=== PATIENT | female | born 1945 | race Caucasian/White ===

== ENCOUNTER 2017-01-24 00:15 | Inpatient (IN) | payer MEDICARE, OTHER ==
[2017-01-24] MEDS ORDERED: Ondansetron INJ* 2 MG/ML VIAL IV ONE ×2 (00:56→03:37)
[2017-01-24] MEDS: NS 0.9% 1000 ML* 2,000 ML IV ONE ×2 (01:11→05:31)
[2017-01-24 01:23] LABS: Hematocrit 38 % (35-47); Hemoglobin 12.8 g/dl (12.0-16.0); Mean Corpuscular HGB Conc 34 g/dl (31-36); Mean Corpuscular Hemoglobin 30 pg (27-31); Mean Corpuscular Volume 90 fL (80-97); Mean Platelet Volume 9 um3 (7.4-10.4); Red Cell Distribution Width 14 % (10.5-15); White Blood Count 8.4 10^3/ul (3.5-10.8)
[2017-01-24 01:38] LABS: BUN/Creatinine Ratio 17.1 (8-20); C Reactive Protein 5.98 mg/L (< 5.00); Calcium 9.6 mg/dL (8.6-10.3); EGFR African American 87.9 (>60); EGFR Non-African American 68.3 (>60); Globulin 3.3 g/dL (2-4); Potassium 3.9 mmol/L (3.5-5.0); Total Bilirubin 0.7 mg/dL (0.2-1.0); Total Protein 7.3 g/dL (6.4-8.9)
[2017-01-24 01:58] LABS: Troponin I 0.01 ng/mL (<0.04)
[2017-01-24] MEDS ORDERED: Iohexol 300* (CONTRAST) 10 ML SDV IV ONE (06:15)
--- NOTE | 2017-01-24 07:10 | ED ---
Eros Read Adam, scribed for Mike Real MD on 01/24/17 at 0057 . GI/ HPI - HPI Summary HPI Summary: Pt is a 71 year old female presenting with nausea and vomiting since between 05: 00 and 06:00 this morning. She states that she felt ill as soon as she woke up. She can't count how many times she has vomited. She states that she can't even keep water down. She does not know if she has eaten any bad food and she states that she hasn't eaten anything out of the ordinary. Her abdomen is not distended and she has been passing gas. She denies diarrhea. She also reports a temporary episode of chest pain earlier today that felt like electrical shocks. PMHx of CHF, COPD, and [place] 1 year ago (no stent due to internal bleeding). She also had a valve replacement 1 year ago. She still has her gallbladder. She is a former smoker. She has approximately 1 drink daily. - History of Current Complaint Chief Complaint: EDNauseaVomitDiarrh Stated Complaint: N,V Hx Obtained From: Patient Onset/Duration: Started Hours Ago, Atraumatic, Still Present Timing: Constant Severity: Moderate Current Severity: Moderate Pain Characteristics: Other: - Electrical shocks in chest Associated Signs and Symptoms: Positive: Nausea, Vomiting, Chest Pain. Negative : Diarrhea Aggravating Factor(s): Nothing Alleviating Factor(s): Medication - Nausea medication in ED - Additional Pertinent History Primary Care Physician: NASIR - Allergy/Home Medications Allergies/Adverse Reactions: Allergies Allergy/AdvReac Type Severity Reaction Status Date / Time Sulfa Antibiotics Allergy Unknown Verified 12/25/15 04:47 Reaction Details PMH/Surg Hx/FS Hx/Imm Hx Endocrine/Hematology History: Reports: Hx Anemia, Hx Unexplained Bleeding Denies: Hx Anticoagulant Therapy, Hx Blood Disorders, Hx Blood Transfusions, Hx Bone Marrow Disease, Hx Diabetes, Hx Thyroid Disease Cardiovascular History: Reports: Hx Angina, Hx Congestive Heart Failure, Hx Coronary Artery Disease, Hx Hypertension, Hx Syncope, Hx Valvular Heart Disease Denies: Hx Aneurysm, Hx Angioplasty, Hx Auto Implanted Cardiovert Defib, Hx Cardiac Arrest, Hx Cardiomegaly, Hx Congenital Heart Disease, Hx Deep Vein Thrombosis, Hx Embolism, Hx Hypercholesterolemia, Hx Hypotension, Hx Pacemaker/ ICD, Hx Peripheral Vascular Disease, Hx Rheumatic Fever Respiratory History: Reports: Hx Chronic Obstructive Pulmonary Disease (COPD), Hx Pneumonia, Hx Pulmonary Edema Denies: Hx Asthma, Hx Chronic Bronchitis, Hx Cystic Fibrosis, Hx Lung Cancer , Hx Pleural Effusion, Hx Pulmonary Embolism, Hx Seasonal Allergies, Hx Sleep Apnea, Other Respiratory Problems/Disorders GI History: Reports: Hx Gastrointestinal Bleed, Other GI Disorders - colon ressection for a polop Denies: Hx Cirrhosis, Hx Crohn's Disease, Hx Diverticulosis, Hx Gall Bladder Disease, Hx Gastroesophageal Reflux Disease, Hx Hiatal Hernia, Hx Irritable Bowel, Hx Jaundice, Hx Obstructive Bowel, Hx Ileostomy, Hx Pyloric Stenosis, Hx Ulcer Musculoskeletal History: Denies: Hx Arthritis, Hx Osteoporosis Sensory History: Reports: Hx Contacts or Glasses Denies: Hx Cataracts, Hx Eye Injury Opthamlomology History: Reports: Hx Contacts or Glasses Denies: Hx Cataracts, Hx Eye Injury Neurological History: Denies: Hx Dementia, Hx Developmental Delay, Hx Headaches, Hx Migraine, Hx Nerve Disease, Hx Seizures, Hx Spinal Cord Injury, Hx Transient Ischemic Attacks (TIA), Other Neuro Impairments/Disorders Psychiatric History: Reports: Hx Anxiety, Hx Depression Denies: Hx Attention Deficit Hyperactivity Disorder, Hx Community Mental Health Tx, Hx Bipolar Disorder - Surgical History Surgery Procedure, Year, and Place: hysterectomy, gallbladder removal, colon resection Hx Anesthesia Reactions: No Infectious Disease History: No Infectious Disease History: Denies: Hx Hepatitis, Hx Tuberculosis, Traveled Outside the [place] in Last 30 Days - Family History Known Family History: Positive: Other - Social History Occupation: Retired Lives: With Family - Alcohol Use: Daily - 1 drink per day Hx Substance Use: No Substance Use Type: Reports: None Hx Tobacco Use: Yes Smoking Status (MU): Former Smoker Type: Cigarettes Amount Used/How Often: 1/2 ppd Have You Smoked in the Last Year: Yes Review of Systems Negative: Fever Positive: Chest Pain Positive: Vomiting, Nausea. Negative: Abdominal Pain, Diarrhea All Other Systems Reviewed And Are Negative: Yes Physical Exam - Summary Physical Exam Summary: The patient is well-nourished in no acute distress and in no acute pain. The skin is warm and dry and skin color reflects adequate perfusion. HEENT: The head is normocephalic and atraumatic. The pupils are equal and reactive. The conjunctivae are clear and without drainage. Nares are patent and without drainage. Mouth reveals dry mucous membranes and the throat is without erythema and exudate. The external ears are intact. The ear canals are patent and without drainage. The tympanic membranes are intact. Neck is supple with full range of motion and non-tender. There are no carotid bruits. There is some neck vein distension. Respiratory: Chest is non-tender. Diminished breath sounds throughout. No wheezes, rhonchi, or rales. Cardiovascular: Heart is regular rate and rhythm. There is no murmur or rub auscultated. There is no peripheral edema and pulses are symmetrical and equal. Abdomen: The abdomen is soft and non-tender. There are normal bowel sounds heard in all four quadrants and there is no organomegaly palpated. Musculoskeletal: There is no back pain noted. Extremities are non-tender with full range of motion. There is good capillary refill. There is pitting edema of the lower extremities. Neurological: Patient is alert and oriented to person, place and time. The patient has symmetrical motor strength in all four extremities. Cranial nerves are grossly intact. Deep tendon reflexes are symmetrical and equal in all four extremities. Psychiatric: The patient has an appropriate affect and does not exhibit any anxiety or depression. Triage Information Reviewed: Yes Vital Signs On Initial Exam: Initial Vitals Temp Pulse Resp BP Pulse Ox 99.2 F 88 18 147/69 98 01/24/17 00:18 01/24/17 00:18 01/24/17 00:18 01/24/17 00:18 01/24/17 00:18 Vital Signs Reviewed: Yes - Elicia Coma Scale Coma Scale Total: 15 Diagnostics - Vital Signs Vital Signs Temp Pulse Resp BP Pulse Ox 01/24/17 00:18 99.2 F 88 18 147/69 98 - Laboratory Lab Results: Lab Results 01/24/17 01/24/17 01/24/17 Range/Units 01:10 01:10 01:10 WBC 8.4 (3.5-10.8) 10^3/ul RBC 4.20 (4.0-5.4) 10^6/ul Hgb 12.8 (12.0-16.0) g/dl Hct 38 (35-47) % MCV 90 (80-97) fL MCH 30 (27-31) pg MCHC 34 (31-36) g/dl RDW 14 (10.5-15) % Plt Count 151 (150-450) 10^3/ul MPV 9 (7.4-10.4) um3 Neut % (Auto) 82.5 (38-83) % Lymph % (Auto) 9.0 L (25-47) % [place] % (Auto) 7.6 (1-9) % Eos % (Auto) 0.5 (0-6) % Baso % (Auto) 0.4 (0-2) % Absolute Neuts (auto) 7.0 (1.5-7.7) 10^3/ul Absolute Lymphs (auto) 0.8 L (1.0-4.8) 10^3/ul Absolute Monos (auto) 0.6 (0-0.8) 10^3/ul Absolute Eos (auto) 0 (0-0.6) 10^3/ul Absolute Basos (auto) 0 (0-0.2) 10^3/ul Absolute Nucleated RBC 0 10^3/ul Nucleated RBC % 0 Sodium 136 (133-145) mmol/L Potassium 3.9 (3.5-5.0) mmol/L Chloride 99 L (101-111) mmol/L Carbon Dioxide 32 (22-32) mmol/L Anion Gap 5 (2-11) mmol/L BUN 14 (6-24) mg/dL Creatinine 0.82 (0.51-0.95) mg/dL Est GFR ( Amer) 87.9 (>60) Est GFR (Non-Af Amer) 68.3 (>60) BUN/Creatinine Ratio 17.1 (8-20) Glucose 134 H (70-100) mg/dL Lactic Acid 1.2 (0.5-2.0) mmol/L Calcium 9.6 (8.6-10.3) mg/dL Total Bilirubin 0.70 (0.2-1.0) mg/dL AST 21 (13-39) U/L ALT 15 (7-52) U/L Alkaline Phosphatase 65 (34-104) U/L Troponin I 0.01 (<0.04) ng/mL C-Reactive Protein 5.98 H (< 5.00) mg/L Total Protein 7.3 (6.4-8.9) g/dL Albumin 4.0 (3.2-5.2) g/dL Globulin 3.3 (2-4) g/dL Albumin/Globulin Ratio 1.2 (1-3) Amylase 46 (29-103) U/L Lipase 17 (11.0-82.0) U/L 01/24/17 Range/Units 05:35 WBC (3.5-10.8) 10^3/ul RBC (4.0-5.4) 10^6/ul Hgb (12.0-16.0) g/dl Hct (35-47) % MCV (80-97) fL MCH (27-31) pg MCHC (31-36) g/dl RDW (10.5-15) % Plt Count (150-450) 10^3/ul MPV (7.4-10.4) um3 Neut % (Auto) (38-83) % Lymph % (Auto) (25-47) % [place] % (Auto) (1-9) % Eos % (Auto) (0-6) % Baso % (Auto) (0-2) % Absolute Neuts (auto) (1.5-7.7) 10^3/ul Absolute Lymphs (auto) (1.0-4.8) 10^3/ul Absolute Monos (auto) (0-0.8) 10^3/ul Absolute Eos (auto) (0-0.6) 10^3/ul Absolute Basos (auto) (0-0.2) 10^3/ul Absolute Nucleated RBC 10^3/ul Nucleated RBC % Sodium (133-145) mmol/L Potassium (3.5-5.0) mmol/L Chloride (101-111) mmol/L Carbon Dioxide (22-32) mmol/L Anion Gap (2-11) mmol/L BUN (6-24) mg/dL Creatinine (0.51-0.95) mg/dL Est GFR ( Amer) (>60) Est GFR (Non-Af Amer) (>60) BUN/Creatinine Ratio (8-20) Glucose (70-100) mg/dL Lactic Acid 0.7 (0.5-2.0) mmol/L Calcium (8.6-10.3) mg/dL Total Bilirubin (0.2-1.0) mg/dL AST (13-39) U/L ALT (7-52) U/L Alkaline Phosphatase (34-104) U/L Troponin I (<0.04) ng/mL C-Reactive Protein (< 5.00) mg/L Total Protein (6.4-8.9) g/dL Albumin (3.2-5.2) g/dL Globulin (2-4) g/dL Albumin/Globulin Ratio (1-3) Amylase (29-103) U/L Lipase (11.0-82.0) U/L Result Diagrams: 01/24/17 01:10 01/24/17 01:10 Lab Statement: Any lab studies that have been ordered have been reviewed, and results considered in the medical decision making process. - Radiology Abdomen X-Ray Radiology Interpretation Completed By: ED Physician - DILATED LARGE BOWEL. AIR FLUID LEVELS. CONCERN FOR SBO. WILL DO CT. - CT A/P CT Interpretation Completed By: Radiologist - MINIMALLY TO MODERATELY DILATED SMALL BOWEL LEFT UPPER AND BILATERAL LOWER QUADRANTS WITH RELATIVELY DECOMPRESSED DISTAL SMALL BOWEL BUT NO DISCRETE TRANSITION POINT. FINDINGS PROBABLY REPRESENT EARLY/PARTIAL SMALL BOWEL OBSTRUCTION. VERY SMALL ANTIMESENTERIC PORTION OF SMALL BOWEL PROJECTS INTO A SHALLOW 1.5 CM SUPRAUMBILICAL VENTRAL HERNIA. NO COLITIS, DIVERTICULITIS OR FREE AIR. NORMAL APPENDIX. UNREMARKABLE PANCREAS AND KIDNEYS. CHOLECYSTECTOMY. INDETERMINATE 2.2 CM RIGHT ADRENAL NODULE. SMALL ASCITES. HYSTERECTOMY. STENT ASCENDING AORTA, INCOMPLETELY SEEN. - EKG 01:17 Cardiac Rate: NL - 80 BPM EKG Interpretation: Old inferior wall [place], RBBB, prolonged QT - Additional Comments Diagnostic Additional Comments: Troponin I - 0.01 Re-Evaluation - Re-Evaluation First Eval Re-Evaluation Time: 03:35 - Patient is getting more nauseated. Concern about possible SBO. Will order CT. Change: Worse Second Eval Re-Evaluation Time: 06:49 - I informed the patient of the results and the plan. GIGU Course/Dx - Course Course Of Treatment: Patient has a SBO and will be admitted. We will contact surgery after 07:00. - Diagnoses Differential Diagnoses - Female: Appendicitis, Bowel Obstruction, Cholelithiasis , Peptic Ulcer Disease, Urinary Tract Infection Provider Diagnoses: Small bowel obstruction, COPD (chronic obstructive pulmonary disease) - Critical Care Time Critical Care Time: 30-74 min - 30 min. Discharge - Discharge Plan Condition: Stable Disposition: ADMITTED TO [facility] Referrals: Lázaro Rivas MD [Primary Care Provider] - The documentation as recorded by the Eros mcconnell Adam accurately reflects the service I personally performed and the decisions made by me, Mike Real MD.
[2017-01-24] MEDS ORDERED: Ondansetron INJ* 2 MG/ML VIAL IV PRN (07:52)
--- NOTE | 2017-01-24 07:53 | RAD ---
Indication: Vomiting, small bowel obstruction Flat and upright views of the abdomen demonstrates no free air. Dilated stomach with air-fluid levels as well as dilated loops of small bowel with air-fluid levels are noted. A paucity of gas is noted in the colon. Findings are suspicious for small bowel obstruction. IMPRESSION: Findings suspicious for small bowel obstruction.
--- NOTE | 2017-01-24 08:10 | RAD ---
CLINICAL HISTORY: Intractable vomiting COMPARISON: December 12, 2002 TECHNIQUE: Multiple contiguous axial CT scans were obtained of the abdomen and pelvis after the administration of intravenous contrast. Coronal and sagittal multiplanar reformations are submitted for review. Oral contrast was administered. Delayed images were obtained through the abdomen and pelvis. FINDINGS: LUNG BASES: A prosthetic heart valve versus aortic stent is noted. There are trace bilateral pleural effusions. LIVER: The liver is normal in shape, size, contour, and attenuation. There is trace amount of perihepatic ascites. BILE DUCTS: There is no intrahepatic or extrahepatic biliary dilatation. GALLBLADDER: The gallbladder is not visualized. Surgical clips are noted in the gallbladder fossa. PANCREAS: The pancreas is normal, without mass or ductal dilatation. SPLEEN: Normal in size and appearance. UPPER GI TRACT: Evaluation of the gastrointestinal tract is limited by incomplete gastric distention. The upper GI tract is unremarkable. SMALL BOWEL AND MESENTERY: There is diffuse distention with mild dilatation of the small bowel proximally. There is a transition to decompressed small bowel within the central lower abdomen. There is a small amount of fluid along the small bowel mesentery. COLON: The colon is decompressed. There is a tubular, vermiform, hollow viscus that is blind ending, and originates from the cecum, consistent with a normal appendix. There is no periappendiceal inflammatory change. ADRENALS: Again noted is right adrenal nodule, not significantly changed from December 12, 2002 KIDNEYS: The kidneys are normal in shape, size, contour, and axis. There is no hydronephrosis or nephrolithiasis. BLADDER: The bladder is smooth in contour. PELVIC ORGANS: The pelvic organs are not visualized. AORTA: There is extensive calcific atherosclerotic disease of the abdominal aorta and its branches, without aneurysmal dilatation IVC: Unremarkable LYMPH NODES: There is no lymphadenopathy by size criteria. ABDOMINAL WALL: There is a small ventral hernia containing sidewall of small bowel. This is not the point of obstruction. BONES AND SOFT TISSUES: There are mild diffuse degenerative changes. There is stable sclerosis along the left SI joint OTHER: None IMPRESSION: 1. MILDLY DILATED LOOPS OF SMALL BOWEL WITH A TRANSITION POINT TO DECOMPRESSED SMALL BOWEL, WITH PAUCITY OF LARGE BOWEL GAS CONSISTENT WITH EARLY OR PARTIAL SMALL BOWEL OBSTRUCTION. 2. SMALL VENTRAL HERNIA CONTAINING SIDEWALL OF SMALL BOWEL, NOT THE POINT OF OBSTRUCTION. 3. SMALL AMOUNT OF ASCITES..
[2017-01-24] MEDS ORDERED: PROCHLORPERAZINE INJ 5 MG/ML 2 ML VIAL IV PRN (08:47)
[2017-01-24] MEDS: NS 0.9% 1000 ML* 1,000 ML IV SCH ×2 (09:43→19:46)
[2017-01-24] MEDS: Morphine INJ* 2 MG/ML 1 ML SYRINGE IV PRN ×3 (11:39→19:46)
[2017-01-24 11:46] LABS: Urine Bilirubin Negative (Negative); Urine Glucose Negative (Negative); Urine Nitrite Negative (Negative)
--- NOTE | 2017-01-24 13:00 | HP ---
HISTORY AND PHYSICAL: DATE OF ADMISSION: 01/24/17 PRIMARY CARE PROVIDER: Dr. Rivas. CHIEF COMPLAINT: Nausea and vomiting. HISTORY OF PRESENT ILLNESS: Ms. Bearden is a 71-year-old female who has had numerous abdominal surgeries including cholecystectomy, hysterectomy, and a partial colon resection in the past, who presents to the emergency room with complaints of 24 hours of nausea and vomiting with mild abdominal discomfort. The patient does state, however, over the last 1 month that she has noticed increased distention of her upper abdomen. The patient does not recall anything out of the ordinary in the last several days; however, her nausea and vomiting persisted over the last 24 hours and therefore she presented to the emergency room. She does state that she has been having normal bowel movements , with her last bowel movement being the day prior to admission. The patient states that she did not eat anything over the last 24 hours due to the persistent nausea and vomiting. Her nausea worsens with any movement. PAST MEDICAL HISTORY: 1. COPD, on 3 L O2 chronically. 2. Diastolic CHF. 3. CAD. 4. Atrial fibrillation. 5. Hypertension. 6. Hyperlipidemia. 7. Anxiety. 8. History of recurrent GI bleed felt to be secondary to a large colonic polyp , status post polypectomy. PAST SURGICAL HISTORY: 1. TAVR. 2. Cholecystectomy. 3. Hysterectomy. 4. Partial colon resection. ALLERGIES: SULFA. FAMILY HISTORY: Mom of colon cancer, she also had a history of uterine cancer. Dad of CHF, he never saw a physician. SOCIAL HISTORY: The patient is a former smoker, she quit approximately 1 year ago at the time of her OR. She drinks 2 alcoholic beverages daily. 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 She is . She has 3 children. Her Floyd is her healthcare proxy. REVIEW OF SYSTEMS: The patient denies any fevers but does admit to feeling chilled and having alternating chills and being hot over the last 24 hours. She has had no appetite for the last 24 hours. She denies any chest. She has chronic lower extremity edema that she states is at her baseline. She denies any shortness of breath at this point. She does have a chronic cough and slight mucous production, though this is unchanged from her baseline. She admits to nausea, vomiting, and abdominal discomfort as above. No diarrhea. No hematuria, no dysuria. No focal weakness or sensory loss. No sudden changes in vision. No dysphagia. No joint pains or muscle pains out of the ordinary. No rashes. No active anxiety or depression. PHYSICAL EXAMINATION GENERAL: The patient is a well-developed elderly female sitting up in the stretcher in no acute distress. VITAL SIGNS: Blood pressure 138/60, pulse 79, respirations 22, temp 99.2, O2 sat 95% on 3 L. HEENT: Pupils are equal, they are round, they react to light. Extraocular muscles are intact. Oropharynx is clear. Oral mucosa is moist. There is no submandibular, cervical, or supraclavicular adenopathy. PULMONARY: Lungs are clear to auscultation bilaterally. The breath sounds are diminished in all lung monae. CARDIAC: Normal S1, S2. Regular rate and rhythm. There is a 3/6 systolic murmur heard best at the left upper sternal border. There is 1 to 2+ bilateral pitting edema of the lower extremities with erythematous changes of the lower legs bilaterally (the patient states this is baseline). ABDOMEN: Bowel sounds are present. Abdomen is moderately distended, slightly tender to palpation. MUSCULOSKELETAL: There is no cyanosis or clubbing of the digits. There is full active range of motion of all 4 extremities. SKIN: Warm and dry. There are no rashes but again there mild erythematous changes to the bilateral lower legs. NEURO: Cranial nerves II through XII are grossly intact. Sensation is intact to light touch throughout. Strength is 5/5 and symmetric in both upper and lower extremities bilaterally. PSYCH: The patient is alert. She is oriented x3. Affect appears appropriate. DIAGNOSTIC STUDIES/LAB DATA: WBC 8.4, hemoglobin 12.8, hematocrit 38, platelets 151. Sodium 136, potassium 3.9, chloride 99, CO2 32, BUN 14, creatinine 0.82, glucose 134, lactic acid 1.2, calcium 9.6, bilirubin 0.7, AST 21, ALT 15, alk phos 65. Troponin 0.01. CRP 5.98. Albumin 4.0, amylase 46, lipase 17. EKG reveals normal sinus rhythm with a prolonged CO interval and right bundle- branch block. Abdominal x-ray shows perhaps mildly distended small bowel loops though this not firmly red. Abdomen and pelvis CT reveals minimally to moderately dilated small bowel of the left upper and bilateral lower quadrants with relatively decompressed distal small bowel, but no discrete transition point. Findings probably represent early partial small bowel obstruction. A very small antimesenteric portion of the small bowel projects into a shallow 1.5 cm supraumbilical ventral hernia. There are no signs of colitis, diverticulitis, or free air. Normal appendix is noted. An indeterminate 2.2 cm right adrenal nodule is also noted. ASSESSMENT AND PLAN: Ms. Bearden is a 71-year-old female with a complicated past medical history including chronic obstructive pulmonary disease with chronic hypoxic respiratory failure requiring 3 L O2 continuously, diastolic congestive heart failure, coronary artery disease, hypertension, hyperlipidemia, history of severe aortic stenosis, status post TAVR, cholecystectomy, hysterectomy, and partial colon resection, who presents to the emergency room with complaints of persistent nausea and vomiting over the last 24 hours along with increased abdominal distention over the last approximately 1 month. 1. Probable partial small bowel obstruction. The patient states that she has been having normal bowel movements daily. Her last bowel movement was the day prior to admission. She does have moderate distention on exam, though she does have positive bowel sounds. At this point, the patient will be admitted to the medical floor, kept n.p.o., and will have Zofran available for nausea. Additionally, I will order Compazine that can be alternated with the Zofran as the nausea is her biggest complaint at this point. Serial abdominal exams and abdominal x-rays will be followed to resolution of the probable partial small bowel obstruction. If the patient fails to improve, a surgical consultation will be requested. 2. Chronic obstructive pulmonary disease. The patient has no signs of chronic obstructive pulmonary disease exacerbation at this time. She will be maintained on her usual 3 L of oxygen and her home inhaler and nebulizer regimen. 3. Diastolic congestive heart failure. The patient does have chronic lower extremity edema. She states that this is at baseline at this point. I am going to be holding her Lasix and giving her fluids while she is n.p.o., so we will need to monitor for worsening of her lower extremity edema or development of pulmonary edema. 4. Coronary artery disease. At this point, the patient is asymptomatic. I am going to be holding her metoprolol XL and aspirin. We will be monitoring for signs of chest pain or other symptoms. 5. Hypertension. The patient's blood pressure is under good control at this point. Her terazosin and metoprolol are going to be held. We will monitor her blood pressure. 6. DVT prophylaxis. According to the Adult Thrombosis Prophylaxis Risk Factor Assessment Guide, the patient has a total risk factor score of 4, making her high risk. She will be placed on heparin 5000 units subcutaneous q.8 hours. 7. Code status is full. The patient again indicates that her Floyd is her healthcare proxy. TIME SPENT: 65 minutes was spent admitting this patient. CC: Dr. Rivas* [id number]/CPS #: [id number] MTDD
[2017-01-24] MEDS: Heparin VIAL(*) 5000 UNITS/ML VIAL (FIVE THOUSAND) SUBCUT SCH ×2 (15:12→22:17)
[2017-01-25] MEDS: NS 0.9% 1000 ML* 1,000 ML IV SCH (05:50)
[2017-01-25] MEDS: Heparin VIAL(*) 5000 UNITS/ML VIAL (FIVE THOUSAND) SUBCUT SCH ×3 (05:58→21:43)
[2017-01-25] MEDS: Morphine INJ* 2 MG/ML 1 ML SYRINGE IV PRN (07:23)
--- NOTE | 2017-01-25 08:52 | RAD ---
HISTORY: Evaluate small bowel obstruction COMPARISONS: CT, plain film dated January 24, 2017 VIEWS: Frontal views of the abdomen. FINDINGS: BOWEL: There is persistent but decreased distention and mild dilatation of small bowel loops. Oral contrast noted within the colon. CALCULI: There are no abnormal calculi. BONES AND SOFT TISSUES: Degenerative changes are noted OTHER FINDINGS: The lung bases are clear. There is no subphrenic gas. IMPRESSION: PERSISTENT BUT DECREASING MILD DILATATION OF SMALL BOWEL. ORAL CONTRAST IS NOTED WITHIN THE COLON, CONSISTENT WITH PARTIAL OR INTERMITTENT OBSTRUCTION
[2017-01-25] MEDS ORDERED: Acetaminophen TAB* 325 MG PO PRN (10:59)
--- NOTE | 2017-01-25 11:08 | PN ---
Subjective Date of Service: 01/25/17 Interval History: This is a 71 yo female with COPD requiring chronic supp O2 with multiple abdominal surgeries who presented with abdominal pain, n/v. CT demonstrated partial SBO. She has been maintained NPO overnight. NG tube was not necessary. She reports passing gas, no additional vomiting. She still feels bloated, but abd is now soft. No further nausea and her appetite is returning. Objective Active Medications: Acetaminophen (Tylenol Tab*) 325 mg PO Q6H PRN PRN Reason: PAIN Albuterol/Ipratropium (Duoneb (Albuterol 2.5 Mg/Ipratropium 0.5 Mg)) 1 neb INH Q6H PRN PRN Reason: SOB/WHEEZING Atorvastatin Calcium (Lipitor*) 40 mg PO 2100 [facility] Budesonide (Pulmicort Neb*) 0.5 mg INH BID [facility] Bupropion HCl (Wellbutrin Sr Tab*) 150 mg PO BID [facility] Heparin Sodium (Porcine) (Heparin Vial(*)) 5,000 units SUBCUT Q8HR [facility] Last Admin: 01/25/17 05:58 Dose: 5,000 units Sodium Chloride (Ns 0.9% 1000 Ml*) 1,000 mls @ 100 mls/hr IV PER RATE [facility] Last Admin: 01/25/17 05:50 Dose: 100 mls/hr Metoprolol Succinate (Toprol Xl Tab*) 50 mg PO DAILY [facility] Morphine Sulfate (Morphine Inj (Syringe)*) 2 mg IV Q4H PRN PRN Reason: PAIN - MILD Last Admin: 01/25/17 07:23 Dose: 2 mg Ondansetron HCl (Zofran Inj*) 4 mg IV Q6H PRN PRN Reason: NAUSEA Prochlorperazine Edisylate (Compazine Inj*) 10 mg IV Q6H PRN PRN Reason: NAUSEA/VOMITING Salmeterol Xinafoate (Serevent Diskus (Nf)) puff INH BID [facility] PRN Reason: Protocol Terazosin HCl (Hytrin Cap*) 5 mg PO BEDTIME [facility] Vital Signs: Temp Pulse Resp BP Pulse Ox 98.5 F 75 18 123/91 100 01/25/17 07:14 01/25/17 07:14 01/25/17 08:23 01/25/17 07:14 01/25/17 07:14 Oxygen Devices in Use Now: Nasal Cannula Appearance: Well appearing elderly female in NAD Respiratory: Symmetrical Chest Expansion and Respiratory Effort, Clear to Auscultation Cardiovascular: NL Sounds; No Murmurs; No JVD, RRR Abdominal: - - distended, but soft, bowel sounds quiet but present, non TTP Extremities: No Edema Skin: No Rash or Ulcers Neurological: Alert and Oriented x 3 Result Diagrams: 01/24/17 01:10 01/24/17 01:10 Additional Lab and Data: . Diagnostic Imaging: CT abd/pelvis - dilated loops small bowel KUB 01/25 - improving dilated loops of SB Assess/Plan/Problems-Billing Assessment: This is a 71 yo female with chronic resp failure secondary to COPD as well as diastolic HF, CAD, afib, HTN, HLD, anxiety and prior AVR and multiple abdominal surgeries who presented with abd pain, n/v and evidence of SBO. - Patient Problems (1) SBO (small bowel obstruction) Comment: Now passing has with improving pain and nausea Will advance to clear liquids Plan to re-eval in pm (2) Chronic respiratory failure Comment: Secondary to COPD without exacerbation cont supp O2 (3) COPD (chronic obstructive pulmonary disease) Comment: No acute exacerbation cont home meds (4) Afib Comment: Sinus rhythm at admission Cont BB No anticoagulation d/t h/o GI bleed (5) Anxiety Comment: Stable Continue wellbutrin (6) CAD (coronary artery disease) Comment: Asymptomatic Cont home meds ASA held in the event surgery is necessary (7) HTN (hypertension) Comment: Normotensive Antihypertensives held at this time with the exception of metoprolol (8) CHF (congestive heart failure) Comment: Chronic diastolic failure without acute exacerbation Lasix held at this time (9) S/P AVR (10) Full code status (11) DVT prophylaxis Comment: SQ heparin Status and Disposition: Patient requires continued hospitalization. Inpatient. Anticipate possible dc tomorrow.
[2017-01-25] MEDS: Metoprolol Succinate XL TAB* 50 MG PO SCH (12:59)
[2017-01-25] MEDS: buPROPion SR TAB.SR* 150 MG PO SCH ×2 (12:59→16:27)
[2017-01-25] MEDS: Mometasone/Formoter 200/5 MDI INH SCH ×2 (14:55→20:45)
[2017-01-25] MEDS ORDERED: Albuterol/Ipratropium NEB.SOL* Albuterol 2.5 MG/Ipratropium 0.5 MG 3 ML ONE (15:43)
[2017-01-25] MEDS: Albuterol/Ipratropium NEB.SOL* Albuterol 2.5 MG/Ipratropium 0.5 MG 3 ML INH PRN ×2 (15:45→20:45)
[2017-01-25] MEDS ORDERED: Budesonide NEB* 0.5 MG/2 ML NEB.SOLN INH SCH (21:00)
[2017-01-25] MEDS ORDERED: Salmeterol DISKUS (NF) INH SCH (21:00)
[2017-01-25] MEDS: Atorvastatin* 40 MG TAB PO SCH (21:42)
[2017-01-25] MEDS: Terazosin CAP* 5 MG PO SCH (21:43)
[2017-01-25] MEDS ORDERED: CMCS Melatonin (NF) 3 MG TAB PO PRN (21:51)
[2017-01-26] MEDS: Morphine INJ* 2 MG/ML 1 ML SYRINGE IV PRN ×2 (02:30→22:28)
[2017-01-26] MEDS: Heparin VIAL(*) 5000 UNITS/ML VIAL (FIVE THOUSAND) SUBCUT SCH ×3 (05:48→22:33)
[2017-01-26] MEDS: Metoprolol Succinate XL TAB* 50 MG PO SCH (08:08)
[2017-01-26] MEDS: buPROPion SR TAB.SR* 150 MG PO SCH ×2 (08:08→17:56)
--- NOTE | 2017-01-26 08:22 | PN ---
Subjective Date of Service: 01/26/17 Interval History: Patient reported no increase in her pain or nausea after soft diet last night but did report her abdomen felt hard again after eating. No pain or vomiting overnight. She continues to pass gas, but no BM. No c/o SOB, CP Objective Active Medications: Acetaminophen (Tylenol Tab*) 325 mg PO Q6H PRN PRN Reason: PAIN Last Admin: 01/26/17 08:08 Dose: 325 mg Albuterol/Ipratropium (Duoneb (Albuterol 2.5 Mg/Ipratropium 0.5 Mg)) 1 neb INH Q6H PRN PRN Reason: SOB/WHEEZING Last Admin: 01/25/17 20:45 Dose: 1 neb Atorvastatin Calcium (Lipitor*) 40 mg PO 2100 [facility] Last Admin: 01/25/17 21:42 Dose: 40 mg Bupropion HCl (Wellbutrin Sr Tab*) 150 mg PO BID WITH MEALS [facility] Last Admin: 01/26/17 08:08 Dose: 150 mg Heparin Sodium (Porcine) (Heparin Vial(*)) 5,000 units SUBCUT Q8HR [facility] Last Admin: 01/26/17 05:48 Dose: 5,000 units Melatonin (Melatonin (Nf)) 3 mg PO BEDTIME PRN; Protocol PRN Reason: Sleep Last Admin: 01/25/17 22:12 Dose: 3 mg Metoprolol Succinate (Toprol Xl Tab*) 50 mg PO DAILY [facility] Last Admin: 01/26/17 08:08 Dose: 50 mg Mometasone Furoate/Formoterol Fumar (Dulera 200/5 Mdi*) 2 puff INH BID [facility] Last Admin: 01/25/17 20:45 Dose: 2 puff Morphine Sulfate (Morphine Inj (Syringe)*) 2 mg IV Q4H PRN PRN Reason: PAIN - MILD Last Admin: 01/26/17 02:30 Dose: 2 mg Ondansetron HCl (Zofran Inj*) 4 mg IV Q6H PRN PRN Reason: NAUSEA Prochlorperazine Edisylate (Compazine Inj*) 10 mg IV Q6H PRN PRN Reason: NAUSEA/VOMITING Terazosin HCl (Hytrin Cap*) 5 mg PO BEDTIME [facility] Last Admin: 01/25/17 21:43 Dose: 5 mg Vital Signs: Temp Pulse Resp BP Pulse Ox 98.2 F 61 16 108/43 96 01/26/17 07:12 01/26/17 07:12 01/26/17 03:09 01/26/17 07:12 01/26/17 07:12 Oxygen Devices in Use Now: Nasal Cannula Appearance: Slightly fatigued but overall well appearing in NAD Neck: NL Appearance and Movements; NL JVP Respiratory: Symmetrical Chest Expansion and Respiratory Effort, Clear to Auscultation Cardiovascular: NL Sounds; No Murmurs; No JVD, RRR Abdominal: - - abd distended, bowel sounds quiet, non TTP Extremities: No Edema Skin: No Rash or Ulcers Neurological: Alert and Oriented x 3 Result Diagrams: 01/24/17 01:10 01/24/17 01:10 Additional Lab and Data: . Diagnostic Imaging: CT abd/pelvis - dilated loops small bowel KUB 01/25 - improving dilated loops of SB Assess/Plan/Problems-Billing Assessment: This is a 71 yo female with chronic resp failure secondary to COPD as well as diastolic HF, CAD, afib, HTN, HLD, anxiety and prior AVR and multiple abdominal surgeries who presented with abd pain, n/v and evidence of SBO. - Patient Problems (1) SBO (small bowel obstruction) Comment: Still passing gas, no BM, tolerating soft diet Plan to repeat KUB and labs this am (2) Chronic respiratory failure Comment: Secondary to COPD without exacerbation cont supp O2 (3) COPD (chronic obstructive pulmonary disease) Comment: No acute exacerbation cont home meds (4) Afib Comment: Sinus rhythm at admission Cont BB No anticoagulation d/t h/o GI bleed (5) Anxiety Comment: Stable Continue wellbutrin (6) CAD (coronary artery disease) Comment: Asymptomatic Cont home meds ASA held in the event surgery is necessary (7) HTN (hypertension) Comment: Normotensive Antihypertensives held at this time with the exception of metoprolol (8) CHF (congestive heart failure) Comment: Chronic diastolic failure without acute exacerbation Lasix held at this time (9) S/P AVR (10) Full code status (11) DVT prophylaxis Comment: SQ heparin Status and Disposition: Patient requires continued hospitalization. Inpatient. Plan to re-eval in pm for possible discharge, but more likely tomorrow
[2017-01-26] MEDS: Mometasone/Formoter 200/5 MDI INH SCH ×2 (08:26→22:40)
--- NOTE | 2017-01-26 09:12 | RAD ---
HISTORY: Partial small bowel traction COMPARISONS: January 25, 2017 VIEWS: Frontal views of the abdomen. FINDINGS: BOWEL: There is a nonspecific bowel gas pattern, with nondilated small bowel gas noted. Oral contrast is noted in the colon. There is gaseous distention of the colon. The caliber of the small bowel is further decreased from the previous examination. CALCULI: There are no abnormal calculi. BONES AND SOFT TISSUES: There are no osseous abnormalities. OTHER FINDINGS: There is no subphrenic gas. IMPRESSION: NONSPECIFIC BOWEL GAS PATTERN. NO SUBPHRENIC GAS.
[2017-01-26 09:23] LABS: Hematocrit 33 % (35-47); Hemoglobin 11.2 g/dl (12.0-16.0); Mean Corpuscular HGB Conc 34 g/dl (31-36); Mean Corpuscular Hemoglobin 30 pg (27-31); Mean Corpuscular Volume 90 fL (80-97); Mean Platelet Volume 9 um3 (7.4-10.4); Red Blood Count 3.68 10^6/ul (4.0-5.4); Red Cell Distribution Width 14 % (10.5-15); White Blood Count 4.8 10^3/ul (3.5-10.8)
[2017-01-26 09:43] LABS: BUN/Creatinine Ratio 14.3 (8-20); Calcium 8.9 mg/dL (8.6-10.3); EGFR African American 105.5 (>60); Potassium 3.3 mmol/L (3.5-5.0)
[2017-01-26] MEDS: Terazosin CAP* 5 MG PO SCH (22:31)
[2017-01-26] MEDS: Atorvastatin* 40 MG TAB PO SCH (22:32)
[2017-01-27] MEDS: Heparin VIAL(*) 5000 UNITS/ML VIAL (FIVE THOUSAND) SUBCUT SCH (06:41)
[2017-01-27 07:45] VITALS: BP 141/56
[2017-01-27] MEDS: buPROPion SR TAB.SR* 150 MG PO SCH (08:46)
[2017-01-27] MEDS: Metoprolol Succinate XL TAB* 50 MG PO SCH (08:46)
[2017-01-27] MEDS: Mometasone/Formoter 200/5 MDI INH SCH (09:40)
--- NOTE | 2017-01-27 16:37 | DS ---
DISCHARGE SUMMARY: DATE OF ADMISSION: 01/24/17 DATE OF DISCHARGE: 01/27/17 PRIMARY CARE PROVIDER: Dr. Rivas. DISCHARGING PROVIDER: PATEL Levy SUPERVISING PHYSICIAN: Dr. Jessa Rosas. * (DICTATED BY PATEL LEVY) PRIMARY DISCHARGE DIAGNOSIS: Small bowel obstruction. SECONDARY DISCHARGE DIAGNOSES: 1. Chronic respiratory failure secondary to chronic obstructive pulmonary disease without acute exacerbation requiring chronic oxygen therapy. 2. Atrial fibrillation, without anticoagulation due to history of gastrointestinal bleed. 3. Anxiety. 4. Coronary artery disease. 5. Hypertension. 6. Chronic diastolic heart failure without acute exacerbation. 7. Status post aortic valve replacement. DISCHARGE MEDICATIONS: 1. DuoNeb inhaled q.6 hours as needed for shortness of breath. 2. Aspirin 81 mg p.o. daily. 3. Atorvastatin 40 mg p.o. daily. 4. Pulmicort 0.5 mg inhaled twice daily. 5. Docusate 100 mg p.o. twice daily. 6. Lasix 20 mg p.o. twice daily. 7. Glucosamine 500 mg p.o. daily. 8. Metoprolol succinate 50 mg p.o. daily. 9. Multivitamin 1 tablet p.o. daily. 10. Serevent Diskus 50 mcg inhaled twice daily. 11. Terazosin 5 mg p.o. at bedtime. 12. Wellbutrin sustained release 150 mg p.o. twice daily. HOSPITAL IMAGIN. Abdominal x-ray, 01/24/17, demonstrates findings suspicious for small bowel obstruction. 2. CT of the abdomen and pelvis, 01/24/17, demonstrates mildly dilated loops of small bowel with a transition point to decompressed small bowel with paucity of large bowel gas consistent with early or partial small bowel obstruction, a small ventral hernia containing side wall of small bowel but does not appear to be the point of obstruction, and a small amount of ascites noted. 3. Abdominal x-ray, 01/25/17, shows persistent, but decreasing mild dilation of small bowel with oral contrast noted within the colon. 4. Abdominal x-ray, 01/26/17, demonstrates nonspecific bowel gas pattern, prior dilated loops of bowel resolved. HOSPITAL COURSE: This is a very pleasant 71-year-old female with history of chronic respiratory failure secondary to COPD, requiring 3 L supplemental O2 at baseline as well as history of chronic diastolic heart failure, coronary artery disease, atrial fibrillation, hypertension, hyperlipidemia, anxiety, and prior aortic valve replacement who presented to the emergency department with complaints of abdominal pain, nausea, vomiting. She does have a history of multiple prior bowel surgeries. Initial KUB was consistent with small bowel obstruction. A followup CT scan demonstrated the same. She does have a small ventral hernia and a portion of one loop of bowel was contained within the hernia, but this does not appear to be the transition point. Initial labs were largely unremarkable. The patient was admitted to medical service and maintained n.p.o. She was able to advance to clear liquids within about 18 hours of admission. Serial KUBs demonstrated improvement in dilation of the small bowel and the patient's pain, nausea, and vomiting improved as well. The patient did not have a bowel movement prior to discharge but was tolerating a soft diet without increase in pain or nausea. No further vomiting during her hospital stay. DISPOSITION: The patient is being discharged to home. No changes to her home medications made. Recommend that she maintain a soft low-fiber diet until symptoms completely resolve. The patient requires followup with her primary care provider within the next week regarding the hospital admission and ensure complete resolution of her symptoms. PATEL LEVY CC: Dr. Rivas* [id number]/[facility] #: [id number]
== END 2017-01-27 09:40 | disposition home or self-care (01) | DRG 394 ==
LOC: ED 00:15 → MED 07:28
PROVIDERS: ADMIT Hospitalist; ATTEND Internal Medicine
DX: K43.6 Other and unspecified ventral hernia with obstruction, without gangrene (principal); J96.11 Chronic respiratory failure with hypoxia; I48.91 Unspecified atrial fibrillation; R18.8 Other ascites; I50.32 Chronic diastolic (congestive) heart failure; I11.0 Hypertensive heart disease with heart failure; J44.9 Chronic obstructive pulmonary disease, unspecified; I25.2 Old myocardial infarction; Z95.2 Presence of prosthetic heart valve; Z87.891 Personal history of nicotine dependence; Z88.2 Allergy status to sulfonamides; I25.10 Atherosclerotic heart disease of native coronary artery without angina pectoris; Z86.010 Personal history of colon polyps; F41.9 Anxiety disorder, unspecified; F32.9 Major depressive disorder, single episode, unspecified; E78.5 Hyperlipidemia, unspecified; Z82.49 Family history of ischemic heart disease and other diseases of the circulatory system; Z80.0 Family history of malignant neoplasm of digestive organs; Z80.8 Family history of malignant neoplasm of other organs or systems; I45.10 Unspecified right bundle-branch block; E27.9 Disorder of adrenal gland, unspecified; Z79.82 Long term (current) use of aspirin; Z79.52 Long term (current) use of systemic steroids
CPT/HCPCS: 36415; 74000; 74020; 74177; 80048; 80053; 81003; 82150; 83605; 83690; 84484; 85025; 86140; 93005; 94640; 94760; A9270-GY; J1644; J2270; J2405; Q9967

== ENCOUNTER 2022-12-06 09:55 | Inpatient (IN) ==
[2022-12-06] MEDS ORDERED: Lactated Ringers 1000 ml BAG 1,000 ML IV ONE ×2 (10:16→11:28)
[2022-12-06] MEDS ORDERED: Vancomycin 1,000 MG in NS 0.9% 250 ml 250 ML IVPB ONE (10:16)
[2022-12-06] MEDS ORDERED: Piperacillin/Tazobac ADVAN 3.375 GM in NS 0.9% 100 ml BAG 100 ML IV ONE (10:17)
[2022-12-06 11:09] LABS: Venous Bicarbonate HCO3 32.7 mmol/L (24-28)
[2022-12-06 11:12] LABS: ABS Eosinophils 0.1 10^3/ul (0-0.6); ABS Lymphocytes 0.7 10^3/ul (1.0-4.8); ABS Monocytes 0.4 10^3/ul (0-0.8); ABS Neutrophils 2.8 10^3/ul (1.5-7.7); Eosinophil % 2.4 %; Hematocrit 36 % (35-47); Hemoglobin 11.7 g/dL (12.0-16.0); Lymphocyte % 18.1 %; Mean Corpuscular HGB Conc 32 g/dL (31-36); Mean Corpuscular Hemoglobin 31 pg (27-31); Mean Corpuscular Volume 97 fL (80-97); Mean Platelet Volume 9.4 fL (7.4-10.4); Nucleated Red Blood Cells % 0.1; Platelet Count 128 10^3/uL (150-450); Red Blood Count 3.75 10^6 /uL (3.70-4.87); Red Cell Distribution Width 14 % (10-15); White Blood Count 4.1 10^3/uL (3.5-10.8)
[2022-12-06 11:58] LABS: TSH Ultra Thyroid Stim Horm 1.35 mcIU/mL (0.34-5.60)
[2022-12-06 11:59] LABS: Albumin 3.7 g/dL (3.2-5.2); Albumin/Globulin Ratio 1.4 (1-3); Creatinine, Serum 0.71 mg/dL (0.51-0.95); Direct Bilirubin 0.1 mg/dL (0.03-0.18); Globulin 2.7 g/dL (2-4); Indirect Bilirubin 0.4 mg/dL (0.3-1.0); Potassium 4.4 mmol/L (3.5-5.0); Total Bilirubin 0.5 mg/dL (0.2-1.0); Total Protein 6.4 g/dL (6.4-8.9); eGFR CKD-EPI 86.4 (>60)
[2022-12-06 12:08] LABS: Free T4 0.88 ng/dL (0.61-1.12)
[2022-12-06 12:37] LABS: High Sensitivity Troponin 1 Hr 13 pg/mL (<15)
[2022-12-06] MEDS ORDERED: Vancomycin 1,000 MG - ED ONCE IVPB ONE (13:00)
[2022-12-06] MEDS ORDERED: Polyethylene Glycol 3350 17 GM PACKET PO PRN (17:42)
[2022-12-06] MEDS ORDERED: Albuterol/Ipratropium NEB.SOL (2.5/0.5 MG) 3 ML NEB.SOLN INH PRN (17:54)
[2022-12-06] MEDS ORDERED: Albuterol HFA INHALER 8 gm MDI INH PRN (17:54)
[2022-12-06] MEDS ORDERED: Al Hydrox/Mg Hydrox/Simet LIQ 30 ML UDC PO PRN (17:54)
[2022-12-06] MEDS ORDERED: guaiFENesin 100 mg/5 ml LIQ unit dose cup PO PRN (17:54)
[2022-12-06] MEDS ORDERED: Bismuth Subsalicylate (BTL) 525 MG/30 ML (BULK BTL) PO PRN (17:54)
[2022-12-06] MEDS ORDERED: Magnesium Hydroxide LIQ 30 ML UDC PO PRN (17:54)
[2022-12-06] MEDS ORDERED: Albuterol 2.5mg/3 ml (0.083%) NEB.SOLN INH PRN (18:30)
[2022-12-06] MEDS: Enoxaparin 40 MG/0.4 ML SYR SUBCUT SCH (18:39)
[2022-12-06] MEDS ORDERED: cefTRIAXone 1 gm/50 mL D5W 1 GM/50 ML BAG IV SCH (19:30)
[2022-12-07] MEDS ORDERED: Lactated Ringers 1000 ml BAG 1,000 ML IV ONE (02:44)
[2022-12-07 06:57] LABS: ABS Eosinophils 0.1 10^3/ul (0-0.6); ABS Monocytes 0.4 10^3/ul (0-0.8); ABS Neutrophils 2.6 10^3/ul (1.5-7.7); Eosinophil % 2.8 %; Hematocrit 32 % (35-47); Hemoglobin 11.2 g/dL (12.0-16.0); Lymphocyte % 24.4 %; Mean Corpuscular HGB Conc 35 g/dL (31-36); Mean Corpuscular Hemoglobin 34 pg (27-31); Mean Corpuscular Volume 98 fL (80-97); Mean Platelet Volume 9.6 fL (7.4-10.4); Platelet Count 114 10^3/uL (150-450); Red Blood Count 3.32 10^6 /uL (3.70-4.87); Red Cell Distribution Width 13 % (10-15); White Blood Count 4.2 10^3/uL (3.5-10.8)
[2022-12-07 07:19] LABS: Calcium 8.8 mg/dL (8.6-10.3); Creatinine, Serum 0.65 mg/dL (0.51-0.95); Magnesium 1.9 mg/dL (1.9-2.7); Potassium 4.2 mmol/L (3.5-5.0); eGFR CKD-EPI 89.5 (>60)
[2022-12-07] MEDS: Aspirin EC 81 mg TAB.EC (enteric coated) PO SCH (09:10)
[2022-12-07] MEDS: CMCS: FLUTICAS/UMECLI/VILANT 200-62.5-25 MDI (NF) INH SCH (10:23)
[2022-12-07 11:13] LABS: High Sensitivity Troponin 1 Hr 15 pg/mL (<15)
[2022-12-07] MEDS ORDERED: Sulfur Hexaflouride MICROSPHR 25 MG VIAL ONE (12:31)
[2022-12-07] MEDS: Enoxaparin 40 MG/0.4 ML SYR SUBCUT SCH (18:20)
[2022-12-08 06:23] LABS: ABS Eosinophils 0.1 10^3/ul (0-0.6); ABS Lymphocytes 0.8 10^3/ul (1.0-4.8); ABS Monocytes 0.4 10^3/ul (0-0.8); ABS Neutrophils 2.9 10^3/ul (1.5-7.7); Eosinophil % 2.6 %; Hematocrit 32 % (35-47); Hemoglobin 10.6 g/dL (12.0-16.0); Lymphocyte % 19.2 %; Mean Corpuscular HGB Conc 33 g/dL (31-36); Mean Corpuscular Hemoglobin 32 pg (27-31); Mean Corpuscular Volume 98 fL (80-97); Mean Platelet Volume 9.2 fL (7.4-10.4); Platelet Count 116 10^3/uL (150-450); Red Blood Count 3.31 10^6 /uL (3.70-4.87); Red Cell Distribution Width 14 % (10-15); White Blood Count 4.3 10^3/uL (3.5-10.8)
[2022-12-08 07:06] LABS: Blood Urea Nitrogen 13 mg/dL (6-24); CO2 Carbon Dioxide 39 mmol/L (22-32); Calcium 8.8 mg/dL (8.6-10.3); Chloride 102 mmol/L (101-111); Creatinine, Serum 0.68 mg/dL (0.51-0.95); Glucose 106 mg/dL (70-100); Magnesium 1.8 mg/dL (1.9-2.7); Potassium 4.1 mmol/L (3.5-5.0); Sodium 141 mmol/L (135-145); eGFR CKD-EPI 88.5 (>60)
[2022-12-08] MEDS: CMCS: FLUTICAS/UMECLI/VILANT 200-62.5-25 MDI (NF) INH SCH (07:54)
[2022-12-08] MEDS ORDERED: Iohexol 350 (CONTRAST) 500 ML MDV IV ONE (08:45)
[2022-12-08 08:50] LABS: % Iron Saturation 16 % (15-55); Iron 46 ug/dL (50-212); Total Iron Binding Capacity 281 mcg/dL (250-450); Transferrin 201 mg/dL (203-362); Unsaturated Iron Binding 235 ug/dL
[2022-12-08] MEDS: Aspirin EC 81 mg TAB.EC (enteric coated) PO SCH (08:53)
[2022-12-08 09:10] LABS: Ferritin 26.7 ng/mL (11-307)
[2022-12-08] MEDS ORDERED: Furosemide 40 mg/4 ml IV VIAL IV ONE (11:50)
[2022-12-08] MEDS ORDERED: Magnesium Sulfate IV 3 GM in NS 0.9% 100 ml BAG 100 ML IVPB ONE (11:53)
[2022-12-08] MEDS: Azithromycin 500 mg/250 ml NS 500 MG/250 ML BAG IVPB SCH (15:39)
[2022-12-08] MEDS: Enoxaparin 40 MG/0.4 ML SYR SUBCUT SCH (19:21)
[2022-12-08] MEDS: CMC:Ranolazine 500 mg TAB ER (NF) PO SCH (21:47)
[2022-12-09 06:46] LABS: ABS Eosinophils 0.1 10^3/ul (0-0.6); ABS Lymphocytes 0.7 10^3/ul (1.0-4.8); ABS Monocytes 0.4 10^3/ul (0-0.8); ABS Neutrophils 2.9 10^3/ul (1.5-7.7); Eosinophil % 2.2 %; Hematocrit 32 % (35-47); Hemoglobin 10.9 g/dL (12.0-16.0); Lymphocyte % 16.9 %; Mean Corpuscular HGB Conc 34 g/dL (31-36); Mean Corpuscular Hemoglobin 33 pg (27-31); Mean Corpuscular Volume 97 fL (80-97); Mean Platelet Volume 9.6 fL (7.4-10.4); Platelet Count 117 10^3/uL (150-450); Red Blood Count 3.31 10^6 /uL (3.70-4.87); Red Cell Distribution Width 13 % (10-15); White Blood Count 4.2 10^3/uL (3.5-10.8)
[2022-12-09 07:18] LABS: C Reactive Protein 3.33 mg/L (<8.01); Calcium 8.9 mg/dL (8.6-10.3); Creatinine, Serum 0.72 mg/dL (0.51-0.95); Potassium 3.9 mmol/L (3.5-5.0)
[2022-12-09] MEDS: CMCS: FLUTICAS/UMECLI/VILANT 200-62.5-25 MDI (NF) INH SCH (08:09)
[2022-12-09] MEDS: CMC:Ranolazine 500 mg TAB ER (NF) PO SCH ×2 (08:59→21:12)
[2022-12-09] MEDS: Aspirin EC 81 mg TAB.EC (enteric coated) PO SCH (08:59)
[2022-12-09] MEDS: Azithromycin 500 mg/250 ml NS 500 MG/250 ML BAG IVPB SCH (13:13)
[2022-12-09] MEDS: Enoxaparin 40 MG/0.4 ML SYR SUBCUT SCH (17:34)
[2022-12-10] MEDS: Aspirin EC 81 mg TAB.EC (enteric coated) PO SCH (07:49)
[2022-12-10] MEDS: CMC:Ranolazine 500 mg TAB ER (NF) PO SCH (07:49)
[2022-12-10] MEDS: CMCS: FLUTICAS/UMECLI/VILANT 200-62.5-25 MDI (NF) INH SCH (08:20)
[2022-12-10 08:43] LABS: Calcium 8.8 mg/dL (8.6-10.3); Creatinine, Serum 0.62 mg/dL (0.51-0.95); Potassium 4.1 mmol/L (3.5-5.0); eGFR CKD-EPI 90.5 (>60)
[2022-12-10 10:16] VITALS: BP 125/66
[2022-12-10] MEDS ORDERED: Azithromycin 500 mg/250 ml NS 500 MG/250 ML BAG IVPB ONE (11:00)
== END 2022-12-10 12:43 | DRG 602 ==
LOC: ED 09:55 → EDHOLD 09:55 → SUATTDRO 19:48 → MED 20:36
PROVIDERS: ADMIT Student in an Organized Health Care Education/Training Program; ATTEND Internal Medicine Hematology & Oncology